=== PATIENT | male | born 1970 | race Caucasian/White ===

== ENCOUNTER 2022-04-06 17:39 | Emergency (ER) | payer SELFPAY ==
[~2022-04-06] VITALS: Ht 172.7 cm; Wt 99.8 kg
[2022-04-06 18:21] LABS: BASO # 0.1 10*3/uL (0.0-0.1); BASO % 0.7 % (0.0-1.0); EOS # 0.4 10*3/uL (0.0-0.4); EOS % 3.9 % (1.0-4.0); HEMATOCRIT 44.5 % (42.0-52.0); LYMPH # 3.7 10*3/uL (1.3-4.4); LYMPH % 34.5 % (27.0-41.0); MEAN CELL VOLUME 85.1 fl (80.0-94.0); MEAN CORPUSCULAR HGB 29.3 pg (27.0-31.0); MEAN CORPUSCULAR HGB CONC 34.4 g/dl (33.0-37.0); MONO # 0.7 10*3/uL (0.1-1.0); MONO % 6.4 % (3.0-9.0); NEUT # 5.7 10*3/uL (2.3-7.9); NEUT % 54.1 % (47.0-73.0); PLATELET COUNT AUTOMATED 322 10*3/uL (130-400); RED BLOOD COUNT 5.23 10*6/uL (4.50-5.90); RED CELL DISTRI WIDTH 11.6 % (0-14.5); WHITE BLOOD COUNT 10.6 10*3/uL (4.8-10.8)
[2022-04-06 18:39] LABS: ALKALINE PHOSPHATASE 88 U/L (46-116); BUN 14 mg/dl (9-23); CHLORIDE 92 mmol/L (98-107); POTASSIUM 4.1 mmol/L (3.4-5.1); SGPT/ALT 20 U/L (10-49); TOTAL PROTEIN 7.9 gm/dL (6.0-8.0)
[2022-04-06 18:41] LABS: ETHYL ALCOHOL < 3.0 mg/dl (<3)
[2022-04-06] MEDS ORDERED: DULOXETINE HCL60 MG PO (18:59)
[2022-04-06] MEDS ORDERED: NAPROXEN500 MG PO (18:59)
[2022-04-06] MEDS ORDERED: ONDANSETRON HYDR4 M1 PO (18:59)
[2022-04-06] MEDS ORDERED: GLYBURIDE5 MG PO (19:00)
[2022-04-06] MEDS ORDERED: HYDROCHLOROTH12.5 M2 PO (19:00)
[2022-04-06] MEDS ORDERED: NEURONTIN300 MG PO (19:00)
[2022-04-06] MEDS ORDERED: ATORVASTATIN CA40 M1 PO (19:01)
[2022-04-06] MEDS ORDERED: LISINOPRIL40 MG PO (19:01)
[2022-04-06] MEDS ORDERED: METFORMIN HYD1000 MG PO (19:01)
[2022-04-06] MEDS ORDERED: TRULICITY3 MG/0.5 M SQ (19:02)
[2022-04-06] MEDS ORDERED: CEPHALEXIN500 M1 PO (20:00)
== END 2022-04-06 20:15 | disposition home or self-care (01) ==
LOC: ED 17:39
PROVIDERS: Physician Assistant
DX: F07.81 Postconcussional syndrome (principal); S91.102A Unspecified open wound of left great toe without damage to nail, initial encounter; W00.0XXA Fall on same level due to ice and snow, initial encounter; Y93.89 Activity, other specified; Y92.89 Other specified places as the place of occurrence of the external cause; Y99.0 Civilian activity done for income or pay